=== PATIENT | female | born 1935 | race Caucasian/White ===

== ENCOUNTER 2017-08-28 19:48 | Inpatient (IN) | payer MEDICARE, OTHER ==
[~2017-08-28] VITALS: Ht 167.6 cm; Wt 72.6 kg
[~2017-08-28 19:48] MED LIST: ACET-2154 PO; ATOR20TA PO; CYAN10006 IM; DILT120C2 PO; DOCU-141 PO; LOSA50TA21 PO; MAGN400O6 PO; MEMA5TAB PO; MULT1TAB73 PO; PANT40TA2 PO; SOTA80TA26 PO; WARF2TAB6 PO
[2017-08-28] MEDS ORDERED: LOSA100T15 PO (20:18)
[2017-08-28] MEDS ORDERED: SOTA80TA PO (20:18)
[2017-08-28] MEDS ORDERED: ATOR40TA PO (20:18)
[2017-08-28 20:24] LABS: BASOPHILS % (AUTO) 0.5 % (0.0-2.0); EOSINOPHILS # (AUTO) 0.1 K/uL (0.0-0.7); EOSINOPHILS % (AUTO) 2.5 % (0.0-7.0); HEMATOCRIT 41.6 % (31.2-41.9); HEMOGLOBIN 13.9 g/dL (10.9-14.3); LYMPHOCYTES # (AUTO) 2.2 K/uL (20.0-40.0); LYMPHOCYTES % (AUTO) 38.6 % (20.5-51.5); MEAN CORPUSCULAR HEMOGLOBIN 37.1 uug (24.7-32.8); MEAN CORPUSCULAR HGB CONC 34 g/dL (32.3-35.6); MEAN CORPUSCULAR VOLUME 110.9 fL (75.5-95.3); MONOCYTES # (AUTO) 0.6 K/uL (2.0-10.0); NEUTROPHILS # (AUTO) 2.7 K/uL (1.8-8.9); NEUTROPHILS % (AUTO) 47.4 % (38.5-71.5); PLATELET COUNT (AUTO) 145 K/uL (179-408); RED BLOOD CELL COUNT(AUTO) 3.76 MIL/uL (3.63-4.92); WHITE BLOOD COUNT (AUTO) 5.7 K/uL (3.8-11.8)
[2017-08-28 20:30] LABS: ALANINE AMINOTRANSFERASE 22 U/L (14-59); ALKALINE PHOSPHATASE 121 U/L (50-136); ASPARTATE AMINOTRANSFERASE 24 U/L (15-37); BILIRUBIN,DIRECT 0.2 mg/dL (0.0-0.2); BILIRUBIN,TOTAL 0.8 mg/dL (0.2-1.0); CARBON DIOXIDE 24 mmol/L (21-32); CHLORIDE 106 mmol/L (98-107); CREATININE 1.4 mg/dL (0.6-1.3); GLUCOSE 91 mg/dL (74-106); POTASSIUM 3.5 mmol/L (3.5-5.1); TOTAL PROTEIN, SERUM 7.2 g/dL (6.4-8.2); UREA NITROGEN, BLOOD 26 mg/dL (7-18)
[2017-08-28 20:33] LABS: ACETAMINOPHEN < 2.0 ug/mL (10-30)
[2017-08-28 20:48] LABS: ETHANOL 168 MG/DL (0-0)
[2017-08-28 21:10] LABS: THYROID STIMULATING HORMONE 2.298 mIU/mL (0.358-3.740)
[2017-08-28] MEDS ORDERED: WARF2TAB57 PO (21:34)
[2017-08-28 21:42] LABS: *BILIRUBIN,URIN NEGATIVE (NEGATIVE); *BLOOD, URINE Trace-intact (NEGATIVE); *CLARITY,URINE SLIGHTLY CLOUDY (CLEAR); *COLOR,URINE YELLOW (YELLOW); *KETONES,URINE NEGATIVE (NEGATIVE); *PROTEIN,URINE NEGATIVE (NEGATIVE); *UROBILINOGEN,URINE 0.2 E.U./dl (NORMAL); LEUKOCYTE ESTERASE ,URINE 2+ (NEGATIVE); NITRITE, URINE NEGATIVE (NEGATIVE); UGLUCOSE NEGATIVE (NEGATIVE)
[2017-08-28 21:57] LABS: BACTERIA,URINE MODERATE /HPF (NONE SEEN); SQUAMOUS EPITHELIAL CELL,UR MODERATE /HPF (NONE SEEN); WBC,URINE 20-50 /HPF (0-3)
[2017-08-28 22:02] LABS: *AMPHETAMINE, URINE NEGATIVE (NEGATIVE); *BARBITURATE, URINE NEGATIVE (NEGATIVE); *CANNABINOID, URINE NEGATIVE (NEGATIVE); *COCCAINE, URINE NEGATIVE (NEGATIVE); *OPIATE, URINE NEGATIVE (NEGATIVE); *PHENCYCLIDINE SCREEN,URINE NEGATIVE (NEGATIVE)
--- NOTE | 2017-08-28 22:20 | NUR ---
PT RECEIVED FROM ED, VIA [place]. PT ORIENTED TO ROOM. A/OX3. ABLE TO MAKE NEEDS KNOWN. V/S STABLE. IN NO ACUTE DISTRESS. NO C/O PAIN AT THIS TIME. PACING WITH UNDERLYING AFLUTTER ON THE TELE MONITOR. IV INTACT AND PATENT. ON RA TOLERATING WELL. AFEBRILE. SAFETY MEASURES IMPLEMENTED. BED ALARM SET. CALL LIGHT WITHIN REACH.
[2017-08-28] MEDS ORDERED: ONDANSETRON 4 MG/2 ML VIAL IV PRN (22:30)
[2017-08-28] MEDS ORDERED: HYDROCODONE/APAP 5-325MG TABLET PO PRN (22:30)
[2017-08-28] MEDS ORDERED: Z GUARD REMEDY PASTE 57 GM TUBE TOP PRN (22:30)
[2017-08-28] MEDS ORDERED: LORAZEPAM 2 MG/1 ML VIAL IV PRN (22:30)
[2017-08-28] MEDS ORDERED: ZOLPIDEM 5 MG TABLET PO PRN (22:30)
[2017-08-28] MEDS ORDERED: MAGNESIUM HYDROXIDE 30 ML LIQUID UDC PO PRN ×2 (22:30→22:45)
[2017-08-28 22:35] VITALS: BP 157/77
[2017-08-28] MEDS ORDERED: hydrALAZINE HCL 25 MG TABLET PO PRN (22:45)
[2017-08-28] MEDS ORDERED: WARFARIN SODIUM 2 MG TABLET PO SCH (22:45)
[2017-08-28] MEDS ORDERED: WARFARIN SODIUM 5 MG TABLET PO SCH (22:45)
--- NOTE | 2017-08-28 22:46 | NUR ---
Pt. admitted to TELE, under care of Dr. Mendoza Belongs List completed
[2017-08-28] MEDS ORDERED: SULFAMETH/TRIMETH 800/160 MG TABLET ONE (23:50)
[2017-08-28] MEDS: SULFAMETH/TRIMETH 800/160 MG TABLET PO SCH (23:50)
--- NOTE | 2017-08-28 23:54 | NUR ---
PT WARFARIN HELD. PT STATES HAVING TAKEN IT TONIGHT.
[2017-08-28] MEDS: IV NS 1000 ML 1,000 ML IV PRN (23:55)
[2017-08-29] VITALS: BP 141/89
[2017-08-29] MEDS ORDERED: SOTALOL HCL 80 MG TABLET ONE (00:03)
[2017-08-29 04:00] VITALS: BP 144/82
[2017-08-29] MEDS ORDERED: DILTIAZEM HCL CD 120 MG CAP.SR.24H PO SCH (06:00)
[2017-08-29] MEDS: PANTOPRAZOLE SODIUM 40 MG TABLET.DR PO SCH (06:22)
--- NOTE | 2017-08-29 06:25 | NUR ---
END OF SHIFT NOTES. PT SLEPT INTERMITTENTLY THROUGHOUT SHIFT. IN STABLE CONDITION. IVF INFUSING. ON RA, TOLERATING WELL. AFEBRILE. ALL NEEDS ATTENDED. SAFETY MAINTAINED. CALL LIGHT WITHIN REACH.
[2017-08-29 07:05] LABS: BASOPHILS % (AUTO) 0.2 % (0.0-2.0); EOSINOPHILS # (AUTO) 0.1 K/uL (0.0-0.7); EOSINOPHILS % (AUTO) 2.4 % (0.0-7.0); HEMATOCRIT 39.9 % (31.2-41.9); HEMOGLOBIN 13.5 g/dL (10.9-14.3); LYMPHOCYTES # (AUTO) 1.6 K/uL (20.0-40.0); LYMPHOCYTES % (AUTO) 28.8 % (20.5-51.5); MEAN CORPUSCULAR HEMOGLOBIN 37.5 uug (24.7-32.8); MEAN CORPUSCULAR HGB CONC 34 g/dL (32.3-35.6); MEAN CORPUSCULAR VOLUME 110.7 fL (75.5-95.3); MONOCYTES # (AUTO) 0.5 K/uL (2.0-10.0); MONOCYTES % (AUTO) 8.5 % (0.0-11.0); NEUTROPHILS # (AUTO) 3.3 K/uL (1.8-8.9); NEUTROPHILS % (AUTO) 60.1 % (38.5-71.5); PLATELET COUNT (AUTO) 145 K/uL (179-408); RED BLOOD CELL COUNT(AUTO) 3.61 MIL/uL (3.63-4.92); WHITE BLOOD COUNT (AUTO) 5.5 K/uL (3.8-11.8)
[2017-08-29 07:11] LABS: ALANINE AMINOTRANSFERASE 17 U/L (14-59); ALKALINE PHOSPHATASE 115 U/L (50-136); ASPARTATE AMINOTRANSFERASE 26 U/L (15-37); BILIRUBIN,DIRECT 0.2 mg/dL (0.0-0.2); BILIRUBIN,TOTAL 0.7 mg/dL (0.2-1.0); CARBON DIOXIDE 20 mmol/L (21-32); CHLORIDE 110 mmol/L (98-107); CHOLESTEROL 184 mg/dL (<200); CREATININE 1.1 mg/dL (0.6-1.3); GLUCOSE 60 mg/dL (74-106); HDL CHOLESTEROL 46 mg/dL (40-60); MAGNESIUM 1.5 mg/dL (1.8-2.4); PHOSPHOROUS 3.8 mg/dL (2.5-4.9); TOTAL PROTEIN, SERUM 6.5 g/dL (6.4-8.2); TRIGLYCERIDES 291 MG/DL (30-150); UREA NITROGEN, BLOOD 21 mg/dL (7-18)
[2017-08-29 07:13] LABS: THYROID STIMULATING HORMONE 1.744 mIU/mL (0.358-3.740)
[2017-08-29 07:48] LABS: IRON, SERUM 52 ug/dL (50-175)
--- NOTE | 2017-08-29 08:00 | NUR ---
awake alert and oriented, denies of pain, no dizziness, explained plan of care- verbalized understanding, instructed to call for assistance when getting up, call light within reach, tele occ'l v paced with aflutter as underlying rhythm
[2017-08-29] MEDS: SULFAMETH/TRIMETH 800/160 MG TABLET PO SCH ×2 (08:49→22:11)
[2017-08-29] MEDS: LOSARTAN POTASSIUM 50 MG TABLET PO SCH (08:49)
[2017-08-29] MEDS: SOTALOL HCL 80 MG TABLET PO SCH ×2 (08:50→22:11)
[2017-08-29] MEDS: THIAMINE HCL 100 MG TABLET PO SCH (08:50)
[2017-08-29] MEDS: FOLIC ACID 1 MG TABLET PO SCH (08:50)
[2017-08-29] MEDS: MEMANTINE HCL 5 MG TABLET PO SCH (08:51)
[2017-08-29] MEDS ORDERED: CYANOCOBALAMIN 1000 MCG/ML VIAL IM SCH (09:00)
[2017-08-29 11:00] VITALS: BP 101/52
--- NOTE | 2017-08-29 11:00 | NUR ---
2d Echo done in the room
[2017-08-29] MEDS: IV NS 1000 ML 1,000 ML IV PRN (11:37)
[2017-08-29] MEDS: MAGNESIUM SULFATE/D5W 100 ML IV SCH ×2 (11:37→12:48)
[2017-08-29 15:30] VITALS: BP 97/56
[2017-08-29] MEDS: WARFARIN SODIUM 2 MG TABLET PO SCH (17:22)
--- NOTE | 2017-08-29 18:27 | NUR ---
no distress noted, no syncopal episode this shift, no dizziness, all needs attended and met, safety measures maintained, call light within reach. Tele A-flutter
[2017-08-29 19:00] VITALS: BP 124/64
--- NOTE | 2017-08-29 19:35 | NUR ---
PT RECEIVED IN BED, AWAKE. A/OX3. ABLE TO MAKE NEEDS KNOWN. V/S STABLE. IN NO ACUTE DISTRESS. NO C/O PAIN AT THIS TIME. ON RA, TOLERATING WELL. IVF INFUSING. V-PACING WITH AFLUTTER ON THE TELE MONITOR. SAFETY MEASURES IMPLEMENTED. BED ALARM SET. CALL LIGHT WITHIN REACH.
[2017-08-29] MEDS: DOCUSATE SODIUM 100 MG CAPSULE PO SCH (22:12)
[2017-08-29] MEDS: ATORVASTATIN 40 MG TABLET PO SCH (22:12)
[2017-08-30] VITALS: BP 145/92
[2017-08-30] MEDS: IV NS 1000 ML 1,000 ML IV PRN (00:35)
[2017-08-30 04:00] VITALS: BP 143/62
--- NOTE | 2017-08-30 05:45 | NUR ---
END OF SHIFT NOTES. PT SLEPT WELL THROUGHOUT SHIFT. IN STABLE CONDITION. IVF INFUSING. ON RA, TOLERATING WELL. ALL NEEDS ATTENDED. SAFETY MAINTAINED. CALL LIGHT WITHIN REACH.
[2017-08-30] MEDS: PANTOPRAZOLE SODIUM 40 MG TABLET.DR PO SCH (06:16)
[2017-08-30 07:16] LABS: CARBON DIOXIDE 22 mmol/L (21-32); CHLORIDE 109 mmol/L (98-107); CREATININE 1.1 mg/dL (0.6-1.3); GLUCOSE 92 mg/dL (74-106); MAGNESIUM 1.7 mg/dL (1.8-2.4); POTASSIUM 3.6 mmol/L (3.5-5.1); UREA NITROGEN, BLOOD 19 mg/dL (7-18)
--- NOTE | 2017-08-30 08:00 | NUR ---
resting in bed, denies of pain, no dizziness, safety measures maintained, call light within reach
[2017-08-30] MEDS: FOLIC ACID 1 MG TABLET PO SCH (08:30)
[2017-08-30] MEDS: THIAMINE HCL 100 MG TABLET PO SCH (08:30)
[2017-08-30] MEDS: SULFAMETH/TRIMETH 800/160 MG TABLET PO SCH ×2 (08:30→20:01)
[2017-08-30] MEDS: MEMANTINE HCL 5 MG TABLET PO SCH (08:31)
[2017-08-30] MEDS: LOSARTAN POTASSIUM 50 MG TABLET PO SCH (08:31)
[2017-08-30] MEDS: DILTIAZEM HCL CD 120 MG CAP.SR.24H PO SCH (08:32)
[2017-08-30] MEDS: SOTALOL HCL 80 MG TABLET PO SCH ×2 (08:32→20:08)
[2017-08-30] MEDS: MAGNESIUM SULFATE/D5W 100 ML IV SCH ×2 (10:23→11:40)
[2017-08-30 11:00] VITALS: BP 125/76
--- NOTE | 2017-08-30 14:00 | NUR ---
seen by Dr Mendoza
[2017-08-30 15:10] VITALS: BP 146/84
--- NOTE | 2017-08-30 16:35 | NUR ---
seen by Case management
[2017-08-30] MEDS ORDERED: WARFARIN SODIUM 2 MG TABLET PO SCH (17:00)
--- NOTE | 2017-08-30 17:45 | NUR ---
ambulated in the hallway with assitance- tolerated well, no distress noted, all needs attended and met, call light within each
[2017-08-30 19:00] VITALS: BP 123/65
--- NOTE | 2017-08-30 19:35 | NUR ---
PT RECEIVED IN BED, AWAKE. A/OX3. ABLE TO MAKE NEEDS KNOWN. V/S STABLE. IN NO ACUTE DISTRESS. PT C/O GENERALIZED PAIN, 12/29. REQUEST TYLENOL. WILL ADMINISTER ORDERED. IV INTACT AND PATENT. ON RA, TOLERATING WELL. SAFETY MEASURES IMPLEMENTED. BED ALARM SET. CALL LIGHT WITHIN REACH.
[2017-08-30] MEDS: ACETAMINOPHEN 325 MG TABLET PO PRN (20:01)
[2017-08-30] MEDS: ATORVASTATIN 40 MG TABLET PO SCH (20:02)
[2017-08-30] MEDS: DOCUSATE SODIUM 100 MG CAPSULE PO SCH (20:02)
[2017-08-31 04:00] VITALS: BP 146/90
--- NOTE | 2017-08-31 05:45 | NUR ---
END OF SHIFT NOTES. PT SLEPT INTERMITTENTLY THROUGHOUT SHIFT. IN STABLE CONDITION. PT WAS CONFUSED DURING THE SHIFT. STATES SHE DID NOT KNOW WHY SHE WAS HERE. NEEDS FREQUENT REORIENTATION. IV INTACT AND PATENT. ON RA, TOLERATING WELL. AFEBRILE. ALL NEEDS ATTENDED. SAFETY MAINTAINED. CALL LIGHT WITHIN REACH.
[2017-08-31] MEDS: PANTOPRAZOLE SODIUM 40 MG TABLET.DR PO SCH (06:07)
[2017-08-31] MEDS: ACETAMINOPHEN 325 MG TABLET PO PRN (06:18)
[2017-08-31 08:08] LABS: BASOPHILS % (AUTO) 0.4 % (0.0-2.0); EOSINOPHILS # (AUTO) 0.1 K/uL (0.0-0.7); HEMATOCRIT 38.7 % (31.2-41.9); HEMOGLOBIN 13.1 g/dL (10.9-14.3); LYMPHOCYTES # (AUTO) 1.6 K/uL (20.0-40.0); LYMPHOCYTES % (AUTO) 35.6 % (20.5-51.5); MEAN CORPUSCULAR HEMOGLOBIN 37.2 uug (24.7-32.8); MEAN CORPUSCULAR HGB CONC 34 g/dL (32.3-35.6); MEAN CORPUSCULAR VOLUME 110.2 fL (75.5-95.3); MONOCYTES # (AUTO) 0.5 K/uL (2.0-10.0); MONOCYTES % (AUTO) 12.1 % (0.0-11.0); NEUTROPHILS # (AUTO) 2.2 K/uL (1.8-8.9); NEUTROPHILS % (AUTO) 48.9 % (38.5-71.5); PLATELET COUNT (AUTO) 125 K/uL (179-408); RED BLOOD CELL COUNT(AUTO) 3.51 MIL/uL (3.63-4.92); WHITE BLOOD COUNT (AUTO) 4.5 K/uL (3.8-11.8)
[2017-08-31 08:33] LABS: CARBON DIOXIDE 21 mmol/L (21-32); CHLORIDE 108 mmol/L (98-107); CREATININE 1.3 mg/dL (0.6-1.3); GLUCOSE 91 mg/dL (74-106); POTASSIUM 3.9 mmol/L (3.5-5.1); UREA NITROGEN, BLOOD 18 mg/dL (7-18)
[2017-08-31] MEDS: DILTIAZEM HCL CD 120 MG CAP.SR.24H PO SCH (10:07)
[2017-08-31] MEDS: LOSARTAN POTASSIUM 50 MG TABLET PO SCH (10:07)
[2017-08-31] MEDS: FOLIC ACID 1 MG TABLET PO SCH (10:07)
[2017-08-31] MEDS: MEMANTINE HCL 5 MG TABLET PO SCH (10:08)
[2017-08-31] MEDS: THIAMINE HCL 100 MG TABLET PO SCH (10:08)
[2017-08-31] MEDS: SOTALOL HCL 80 MG TABLET PO SCH (10:09)
[2017-08-31] MEDS: SULFAMETH/TRIMETH 800/160 MG TABLET PO SCH (10:10)
[2017-08-31 11:30] VITALS: BP 144/84
[2017-08-31 15:22] VITALS: BP 118/61
[2017-08-31] MEDS: WARFARIN SODIUM 2 MG TABLET PO SCH (17:37)
== END 2017-08-31 19:00 | disposition home or self-care (01) | DRG 896 ==
LOC: ER 19:49 → TELE 22:08 → MED 08-30 05:24
PROVIDERS: ADMIT Internal Medicine; ATTEND Internal Medicine
DX: F10.229 Alcohol dependence with intoxication, unspecified (principal); N17.0 Acute kidney failure with tubular necrosis; D68.59 Other primary thrombophilia; G31.2 Degeneration of nervous system due to alcohol; I48.0 Paroxysmal atrial fibrillation; E83.42 Hypomagnesemia; R55 Syncope and collapse; I48.92 Unspecified atrial flutter; N39.0 Urinary tract infection, site not specified; T51.0X1A Toxic effect of ethanol, accidental (unintentional), initial encounter; Y90.6 Blood alcohol level of 120-199 mg/100 ml; D63.8 Anemia in other chronic diseases classified elsewhere; E78.5 Hyperlipidemia, unspecified; F03.90 Unspecified dementia, unspecified severity, without behavioral disturbance, psychotic disturbance, mood disturbance, and anxiety; I12.9 Hypertensive chronic kidney disease with stage 1 through stage 4 chronic kidney disease, or unspecified chronic kidney disease; I25.10 Atherosclerotic heart disease of native coronary artery without angina pectoris; K21.9 Gastro-esophageal reflux disease without esophagitis; Z79.01 Long term (current) use of anticoagulants; Z83.3 Family history of diabetes mellitus; Z87.891 Personal history of nicotine dependence; Z91.19 Patient's noncompliance with other medical treatment and regimen; Z95.0 Presence of cardiac pacemaker; Z88.0 Allergy status to penicillin; N18.9 Chronic kidney disease, unspecified; D75.89 Other specified diseases of blood and blood-forming organs; E78.1 Pure hyperglyceridemia
CPT/HCPCS: 36415; 80307; 82746; 83550; 83735; 84100; 84443; 85025; 85610; 87086; 93005; 93307; A4663; G0480; G0480-TC; J3475; J7030

== ENCOUNTER 2018-03-13 17:33 | Inpatient (IN) | payer MEDICARE, OTHER ==
[~2018-03-13] VITALS: Ht 167.6 cm; Wt 65.8 kg
[~2018-03-13 17:33] MED LIST changes: +ATOR40TA PO; -CYAN10006 IM; +DILT-32 PO; -DILT120C2 PO; +LOSA100T15 PO; +SOTA80TA PO; +WARF-68 PO; +WARF2TAB57 PO; -WARF2TAB6 PO
[2018-03-13 18:29] LABS: BASOPHILS % (AUTO) 0.6 % (0.0-2.0); EOSINOPHILS # (AUTO) 0.1 K/uL (0.0-0.7); EOSINOPHILS % (AUTO) 1.8 % (0.0-7.0); HEMATOCRIT 39.3 % (31.2-41.9); HEMOGLOBIN 13.1 g/dL (10.9-14.3); LYMPHOCYTES # (AUTO) 1.9 K/uL (20.0-40.0); LYMPHOCYTES % (AUTO) 32.4 % (20.5-51.5); MEAN CORPUSCULAR HEMOGLOBIN 32.7 uug (24.7-32.8); MEAN CORPUSCULAR HGB CONC 33 g/dL (32.3-35.6); MEAN CORPUSCULAR VOLUME 98.3 fL (75.5-95.3); MONOCYTES # (AUTO) 0.7 K/uL (2.0-10.0); MONOCYTES % (AUTO) 11.3 % (0.0-11.0); NEUTROPHILS # (AUTO) 3.2 K/uL (1.8-8.9); NEUTROPHILS % (AUTO) 53.9 % (38.5-71.5); PLATELET COUNT (AUTO) 144 K/uL (179-408); RED BLOOD CELL COUNT(AUTO) 3.99 MIL/uL (3.63-4.92)
--- NOTE | 2018-03-13 18:29 | NUR ---
PT IS IN ROOM #1A. DR SIMPSON EVALUATED THE PT.
[2018-03-13 18:33] LABS: CARBON DIOXIDE 25 mmol/L (21-32); CHLORIDE 108 mmol/L (98-107); GLUCOSE 98 mg/dL (74-106); POTASSIUM 3.9 mmol/L (3.5-5.1); UREA NITROGEN, BLOOD 14 mg/dL (7-18)
[2018-03-13 18:41] LABS: ETHANOL < 3 MG/DL (0-0)
[2018-03-13 18:43] LABS: *BILIRUBIN,URIN NEGATIVE (NEGATIVE); *BLOOD, URINE NEGATIVE (NEGATIVE); *CLARITY,URINE SLIGHTLY CLOUDY (CLEAR); *COLOR,URINE YELLOW (YELLOW); *KETONES,URINE NEGATIVE (NEGATIVE); *PROTEIN,URINE NEGATIVE (NEGATIVE); *UROBILINOGEN,URINE 0.2 E.U./dl (NORMAL); LEUKOCYTE ESTERASE ,URINE 1+ (NEGATIVE); NITRITE, URINE NEGATIVE (NEGATIVE); UGLUCOSE NEGATIVE (NEGATIVE)
[2018-03-13 18:44] LABS: BACTERIA,URINE MODERATE /HPF (NONE SEEN); RBC,URINE 0-3 /HPF (0-3); SQUAMOUS EPITHELIAL CELL,UR MANY /HPF (NONE SEEN)
[2018-03-13 18:45] LABS: ALANINE AMINOTRANSFERASE 19 U/L (14-59); ALKALINE PHOSPHATASE 115 U/L (50-136); ASPARTATE AMINOTRANSFERASE 16 U/L (15-37); BILIRUBIN,DIRECT 0.3 mg/dL (0.0-0.2); BILIRUBIN,TOTAL 1.3 mg/dL (0.2-1.0); TOTAL PROTEIN, SERUM 7.1 g/dL (6.4-8.2)
--- NOTE | 2018-03-13 19:11 | NUR ---
REPORT TAKEN FROM DAY SHIFT RN. ASSUMING PT CARE AT THIS TIME.
--- NOTE | 2018-03-13 19:24 | NUR ---
DR SIMPSON SPEAKING TO DR BARKER.
[2018-03-13 20:00] VITALS: BP 167/83
--- NOTE | 2018-03-13 20:07 | NUR ---
Pt. admitted to TELE, under care of Dr. BARKER Belongs List completed
--- NOTE | 2018-03-13 20:07 | NUR ---
REPORT GIVEN TO MARGARETTE BAIRES.
[2018-03-13 20:30] VITALS: BP 138/68
--- NOTE | 2018-03-13 20:30 | NUR ---
RECEIVED PATIENT FROM ER. PATIENT IS ADMITTED FOR SUBACUTE CVA. NO FACIAL DROOPING OR ARM WEAKNESS ON ASSESSMENT. PATIENT IS AAXO2 WITH SOME CONFUSION DENIES PAIN OR ANY DISTRESS,ON ASSESSMENT. SAFETY MEASURES IN PLACE, CALL LIGHT LEFT WITHIN PATIENT'S REACH
[2018-03-13] MEDS ORDERED: MAGNESIUM HYDROXIDE 30 ML LIQUID UDC PO PRN (22:30)
[2018-03-13] MEDS ORDERED: ACETAMINOPHEN 325 MG TABLET PO PRN (22:30)
[2018-03-13] MEDS ORDERED: MORPHINE SULFATE 2 MG/1 ML DISP.SYRIN IV PRN (22:45)
[2018-03-13] MEDS ORDERED: ONDANSETRON 4 MG/2 ML VIAL IV PRN (22:45)
[2018-03-13] MEDS ORDERED: ATORVASTATIN 40 MG TABLET PO ONE (23:00)
[2018-03-14] VITALS: BP 136/61
[2018-03-14 04:00] VITALS: BP 137/69
[2018-03-14] MEDS: DILTIAZEM HCL CD 120 MG CAP.SR.24H PO SCH (06:07)
[2018-03-14] MEDS: PANTOPRAZOLE SODIUM 40 MG TABLET.DR PO SCH (06:07)
[2018-03-14 06:29] LABS: BASOPHILS % (AUTO) 0.3 % (0.0-2.0); EOSINOPHILS # (AUTO) 0.1 K/uL (0.0-0.7); EOSINOPHILS % (AUTO) 2.4 % (0.0-7.0); HEMATOCRIT 39.6 % (31.2-41.9); HEMOGLOBIN 13.3 g/dL (10.9-14.3); LYMPHOCYTES % (AUTO) 34.1 % (20.5-51.5); MEAN CORPUSCULAR HGB CONC 34 g/dL (32.3-35.6); MEAN CORPUSCULAR VOLUME 98.1 fL (75.5-95.3); MONOCYTES # (AUTO) 0.7 K/uL (2.0-10.0); NEUTROPHILS % (AUTO) 51.2 % (38.5-71.5); PLATELET COUNT (AUTO) 136 K/uL (179-408); RED BLOOD CELL COUNT(AUTO) 4.04 MIL/uL (3.63-4.92); WHITE BLOOD COUNT (AUTO) 5.9 K/uL (3.8-11.8)
--- NOTE | 2018-03-14 06:50 | NUR ---
PATIENT SLEPT WELL THROUGH THE SHIFT, CONTINUES TO BE CONFUSED WITH DIFFICULTY EXPRESSING WORDS. DENIES PAIN NO ACUTE DISTRESS AT THIS TIME. SAFETY MEASURES MAINTAINED AT ALL TIMES.
[2018-03-14 07:23] LABS: ALANINE AMINOTRANSFERASE 18 U/L (14-59); ALKALINE PHOSPHATASE 102 U/L (50-136); ASPARTATE AMINOTRANSFERASE 21 U/L (15-37); CARBON DIOXIDE 25 mmol/L (21-32); CHLORIDE 107 mmol/L (98-107); CHOLESTEROL 192 mg/dL (<200); GLUCOSE 89 mg/dL (74-106); HDL CHOLESTEROL 48 mg/dL (40-60); MAGNESIUM 1.7 mg/dL (1.8-2.4); PHOSPHOROUS 3.7 mg/dL (2.5-4.9); POTASSIUM 3.7 mmol/L (3.5-5.1); TOTAL PROTEIN, SERUM 6.7 g/dL (6.4-8.2); TRIGLYCERIDES 171 MG/DL (30-150); UREA NITROGEN, BLOOD 13 mg/dL (7-18)
--- NOTE | 2018-03-14 08:00 | NUR ---
Pt alert and oriented. x2 reoriented to time and place. Pt very forgetfull and pt having hard time expressing herself when talking. Pt Able to swallow fine. No drift noted. Fall precaution implemented. Call light is within reach.
--- NOTE | 2018-03-14 08:00 | NUR ---
Received patient resting in bed. no acute distress at this time. IV access intact and patent. Patient ambulatory. Patient respirations even and unlabored. 02 sat 98% on room air. Full body assessment done. Skin remain intact. Patient able to verbalize needs however noted with mild aphasia.
[2018-03-14] MEDS: LOSARTAN POTASSIUM 50 MG TABLET PO SCH (08:35)
[2018-03-14] MEDS: MEMANTINE HCL 5 MG TABLET PO SCH (08:35)
[2018-03-14] MEDS: CLOPIDOGREL 75 MG TABLET PO SCH (08:37)
[2018-03-14] MEDS ORDERED: PANTOPRAZOLE SODIUM 40 MG VIAL IV SCH (09:00)
[2018-03-14] MEDS ORDERED: SOTALOL HCL 80 MG TABLET PO SCH (09:00)
[2018-03-14 11:32] VITALS: BP 128/62
[2018-03-14] MEDS ORDERED: POTASSIUM CHLORIDE 20 MEQ TAB.PRT.SR PO ONE (11:45)
[2018-03-14] MEDS ORDERED: MAGNESIUM OXIDE 400 MG TABLET PO ONE (11:45)
--- NOTE | 2018-03-14 12:00 | NUR ---
Patient consumed 100% of meal. Blood pressure medications held for hypotension. Patient reminded of fall safety precautions such as wearing non skid socks and requesting for assistance when ambulating. Patient remains comfortably. No abnormal bleeding and bruising noted related to anti coagulant usage.
[2018-03-14] MEDS: CYANOCOBALAMIN 1000 MCG/ML VIAL IM SCH (12:09)
--- NOTE | 2018-03-14 14:00 | NUR ---
Noted patient appears to be on Xarelto and Plavix together. MD made aware. No new orders noted. Will monitor for abnormal bleeding or bruising and endorse to oncoming Nurse.
[2018-03-14 15:32] VITALS: BP 111/57
--- NOTE | 2018-03-14 17:59 | NUR ---
Ok received from Dr. Kent to give Xarelto despite plavix therapy.
--- NOTE | 2018-03-14 18:00 | NUR ---
Pt is in no acute distress. No fall noted. Call light is within reach. clarified xarelto and plavix ok to be given both today. Will f/u tomorrow.
[2018-03-14] MEDS: RIVAROXABAN 15 MG TABLET PO SCH (18:21)
[2018-03-14 19:00] VITALS: BP 117/65
[2018-03-14] MEDS: ATORVASTATIN 40 MG TABLET PO SCH (21:06)
[2018-03-14] MEDS: DOCUSATE SODIUM 100 MG CAPSULE PO SCH (21:06)
[2018-03-14] MEDS: LORAZEPAM 2 MG/1 ML VIAL IV PRN (21:06)
--- NOTE | 2018-03-14 21:30 | NUR ---
AT 2049 PATIENT APPEARS ANXIOUS AND CONFUSED. REORIENTATION PROVIDED. MD BARKER INFORMED ON PATIENT MENTAL STATUS. AT 2099 MD BARKER ORDERED TO START ON 1 MG ATIVAN Q8H PRN FOR ANXIETY. ORDER RECEIVED AND CARRIED OUT. REASSESSED PATIENTS STATUS. PATIENT ASLEEP ON BED, RESTING COMFORTABLY. ON SINUS RHYTHM WITH HR OF 85. NO SIGNS OF RESPIRATORY DISTRESS.
[2018-03-14] MEDS ORDERED: LEVOFLOXACIN 500 MG/D5W 100 ML ONE (22:53)
[2018-03-14] MEDS: LEVOFLOXACIN 500 MG/D5W 500 MG in PREMIXED 1 EACH IV SCH (23:17)
[2018-03-15] VITALS: BP 138/52
--- NOTE | 2018-03-15 | NUR ---
Patient remains asleep, Afib on the monitor.
[2018-03-15 04:00] VITALS: BP 145/79
[2018-03-15] MEDS: MORPHINE SULFATE 4 MG/1 ML DISP.SYRIN IV PRN (04:18)
--- NOTE | 2018-03-15 04:22 | NUR ---
Awake but confused, c/o left LE pain. Heart rate running 120s-140s Atrial fib. Morphine 1mg IVP adm & monitored.
[2018-03-15] MEDS: DILTIAZEM HCL CD 120 MG CAP.SR.24H PO SCH (06:00)
[2018-03-15] MEDS: PANTOPRAZOLE SODIUM 40 MG TABLET.DR PO SCH (06:18)
--- NOTE | 2018-03-15 06:46 | NUR ---
PATIENT REMAIN ASLEEP, RESTING COMFORTABLY. ON TELE AFIB RHYTHM WITH HR OF 108. NO SOB, DENIES CHEST PAIN. SAFETY MEASURES MAINTAINED AT ALL TIMES.
[2018-03-15] MEDS: MEMANTINE HCL 5 MG TABLET PO SCH (08:59)
[2018-03-15] MEDS ORDERED: CYANOCOBALAMIN 1000 MCG/ML VIAL IM SCH (09:00)
--- NOTE | 2018-03-15 09:00 | NUR ---
Pt more confused today. Dr Kent aware and awaiting for CT head to be done. Fall precaution implemented. 1:1 sitter at bedside. Call light is within reach.
[2018-03-15] MEDS: CYANOCOBALAMIN 1000 MCG/ML VIAL IM SCH (09:02)
[2018-03-15] MEDS: LOSARTAN POTASSIUM 50 MG TABLET PO SCH (09:02)
[2018-03-15] MEDS: CLOPIDOGREL 75 MG TABLET PO SCH (09:02)
[2018-03-15 12:00] VITALS: BP 110/54
--- NOTE | 2018-03-15 15:00 | NUR ---
Dr nguyen saw pt. CT head negative. Pt is in no acute distress. ST eval passed. Call light is within reach.
[2018-03-15 15:45] VITALS: BP 121/53
[2018-03-15] MEDS: ASPIRIN EC 81 MG TABLET.DR PO SCH (16:19)
[2018-03-15] MEDS: RIVAROXABAN 15 MG TABLET PO SCH (17:46)
[2018-03-15 20:00] VITALS: BP 102/57
--- NOTE | 2018-03-15 20:00 | NUR ---
Awake & alert pleasantly confused, no SOB denies chest pain. Ambulatory w/ minimal assist. Vital signs WNL. Tele Afib 90s. Seen & examined by neurologist Dr. Alejo, no further orders received. 1:1 sitter in room.
[2018-03-15] MEDS: ATORVASTATIN 40 MG TABLET PO SCH (21:13)
[2018-03-15] MEDS: DOCUSATE SODIUM 100 MG CAPSULE PO SCH (21:13)
[2018-03-15] MEDS: LEVOFLOXACIN 500 MG/D5W 500 MG in PREMIXED 1 EACH IV SCH (22:36)
[2018-03-16] VITALS: BP 116/56
[2018-03-16 04:00] VITALS: BP 110/73
[2018-03-16 06:28] LABS: CARBON DIOXIDE 25 mmol/L (21-32); CHLORIDE 109 mmol/L (98-107); CREATININE 1.1 mg/dL (0.6-1.3); GLUCOSE 90 mg/dL (74-106); MAGNESIUM 1.6 mg/dL (1.8-2.4); PHOSPHOROUS 3.7 mg/dL (2.5-4.9); UREA NITROGEN, BLOOD 12 mg/dL (7-18)
[2018-03-16] MEDS: DILTIAZEM HCL CD 120 MG CAP.SR.24H PO SCH (06:29)
[2018-03-16] MEDS: PANTOPRAZOLE SODIUM 40 MG TABLET.DR PO SCH (06:29)
--- NOTE | 2018-03-16 06:30 | NUR ---
No significant vital signs stable. Afib on the monitor.
[2018-03-16 06:52] LABS: BASOPHILS % (AUTO) 0.2 % (0.0-2.0); EOSINOPHILS # (AUTO) 0.1 K/uL (0.0-0.7); EOSINOPHILS % (AUTO) 2.5 % (0.0-7.0); HEMATOCRIT 40.1 % (31.2-41.9); HEMOGLOBIN 13.4 g/dL (10.9-14.3); LYMPHOCYTES # (AUTO) 1.6 K/uL (20.0-40.0); LYMPHOCYTES % (AUTO) 34.1 % (20.5-51.5); MEAN CORPUSCULAR HEMOGLOBIN 32.9 uug (24.7-32.8); MEAN CORPUSCULAR HGB CONC 34 g/dL (32.3-35.6); MEAN CORPUSCULAR VOLUME 98.1 fL (75.5-95.3); MONOCYTES # (AUTO) 0.7 K/uL (2.0-10.0); MONOCYTES % (AUTO) 15.4 % (0.0-11.0); NEUTROPHILS # (AUTO) 2.3 K/uL (1.8-8.9); NEUTROPHILS % (AUTO) 47.8 % (38.5-71.5); PLATELET COUNT (AUTO) 127 K/uL (179-408); RED BLOOD CELL COUNT(AUTO) 4.08 MIL/uL (3.63-4.92); WHITE BLOOD COUNT (AUTO) 4.7 K/uL (3.8-11.8)
--- NOTE | 2018-03-16 07:10 | NUR ---
Received pt awake in bed with no immediate s/s of SOB, pain, distress or discomfort. Sitter 1:1 for safety
[2018-03-16] MEDS: MEMANTINE HCL 5 MG TABLET PO SCH (08:55)
[2018-03-16] MEDS: ASPIRIN EC 81 MG TABLET.DR PO SCH (08:55)
[2018-03-16] MEDS: LOSARTAN POTASSIUM 50 MG TABLET PO SCH (08:56)
[2018-03-16] MEDS: CYANOCOBALAMIN 1000 MCG/ML VIAL IM SCH (08:56)
[2018-03-16 10:26] LABS: EOSINOPHILS % (MANUAL) 1 % (0-8); LYMPHOCYTES % (MANUAL) 35 % (20-40); MONOCYTES % (MANUAL) 14 % (2-10); NEUTROPHILS % (MANUAL) 50 % (42-75)
--- NOTE | 2018-03-16 12:07 | NUR ---
Patient is 82 y/o female who present with left-sided lower extremity weakness and some difficulty finding words. Currently on cardiac/soft diet. Diet texture has been modified as per RESEARCH AND DEVELOPMENT MANAGER recommendations and per RESEARCH AND DEVELOPMENT MANAGER notes from 03/15/18, Soft diet appeared to be appropriate at this time. As per case management meeting, patient will have another swallow eval today, recent swallow eval was from yesterday. Will f/u with a new swallow eval Patient is tolerating current diet, eating 75-100% of meals. Anthropometry:current weight is 145lb,BMI 23.4, Bowel sound present skin intact No nutrition diagnosis at this time, full nutrition assessment scheduled as per policy. Monitor:PO intake,weight, new labs Addendum: 03/16/18 at [address] Amended: Links added.
[2018-03-16] MEDS: MAGNESIUM SULFATE/D5W 100 ML IV SCH ×2 (16:14→17:10)
[2018-03-16] MEDS: RIVAROXABAN 15 MG TABLET PO SCH (17:10)
--- NOTE | 2018-03-16 19:20 | NUR ---
Pt has been compliant with medication and nursing care. Pt had a sitter 1:1 throughout the shift for safety.
[2018-03-16] MEDS: MORPHINE SULFATE 4 MG/1 ML DISP.SYRIN IV PRN (20:04)
[2018-03-16] MEDS: LORAZEPAM 2 MG/1 ML VIAL IV PRN (20:11)
[2018-03-16] MEDS: ATORVASTATIN 40 MG TABLET PO SCH (20:13)
[2018-03-16] MEDS: DOCUSATE SODIUM 100 MG CAPSULE PO SCH (20:13)
--- NOTE | 2018-03-16 22:00 | NUR ---
Patient transferred to room 226 for safety issue. Confused, agitated yelling with the caregivers. Patient managed to pull her IV out. 1:1 sitter provided.
--- NOTE | 2018-03-16 22:30 | NUR ---
Ativan 1mg IVP adm., good effect noted. Inserted new IV line on left hand [id number]. Levaquin IVPB adm. Will continue to monitor.
[2018-03-16] MEDS: LEVOFLOXACIN 500 MG/D5W 500 MG in PREMIXED 1 EACH IV SCH (22:45)
--- NOTE | 2018-03-16 23:30 | NUR ---
Patient sleeping comfortably. Fall precaution observed.
--- NOTE | 2018-03-17 03:00 | NUR ---
Awake disoriented to place. Assisted to the bathroom patient voided. Agitated at this time verbalizing she want to go home, yelling at staff. Escorted back to bed, Ativan 1mg IVP administered.
[2018-03-17] MEDS: LORAZEPAM 2 MG/1 ML VIAL IV PRN ×2 (03:05→13:11)
[2018-03-17] MEDS: MORPHINE SULFATE 4 MG/1 ML DISP.SYRIN IV PRN (03:30)
--- NOTE | 2018-03-17 03:34 | NUR ---
Still awake anxious c/o left shoulder discomfort. Repositioned in bed. Morphine 1 mg IVP given. Will continue to monitor.
[2018-03-17 04:00] VITALS: BP 112/57
--- NOTE | 2018-03-17 04:10 | NUR ---
Patient quiet at this time. Fall precaution observed.
[2018-03-17] MEDS: DILTIAZEM HCL CD 120 MG CAP.SR.24H PO SCH (06:00)
[2018-03-17] MEDS: PANTOPRAZOLE SODIUM 40 MG TABLET.DR PO SCH (06:08)
[2018-03-17 06:49] LABS: CARBON DIOXIDE 27 mmol/L (21-32); CHLORIDE 108 mmol/L (98-107); CREATININE 1.1 mg/dL (0.6-1.3); GLUCOSE 97 mg/dL (74-106); MAGNESIUM 2.1 mg/dL (1.8-2.4); POTASSIUM 3.8 mmol/L (3.5-5.1)
[2018-03-17 07:01] LABS: UREA NITROGEN, BLOOD 12 mg/dL (7-18)
--- NOTE | 2018-03-17 07:20 | NUR ---
patient alert and pleasantly confused. no signs of respiratory distress. safety measures maintained at all times.
[2018-03-17 08:00] VITALS: BP 130/68
[2018-03-17] MEDS: ASPIRIN EC 81 MG TABLET.DR PO SCH (08:52)
[2018-03-17] MEDS: LOSARTAN POTASSIUM 50 MG TABLET PO SCH (08:53)
[2018-03-17] MEDS: CYANOCOBALAMIN 1000 MCG/ML VIAL IM SCH (08:53)
[2018-03-17] MEDS: MEMANTINE HCL 5 MG TABLET PO SCH (08:53)
[2018-03-17 12:00] VITALS: BP 147/87
[2018-03-17] MEDS ORDERED: ASPI-618 PO (13:52)
[2018-03-17] MEDS ORDERED: RIVA15TA PO (13:52)
[2018-03-17] MEDS ORDERED: LEVO500T90 PO (13:52)
[2018-03-17] MEDS ORDERED: LORA0.5T PO (14:46)
[2018-03-17 16:20] VITALS: BP 152/82
--- NOTE | 2018-03-17 17:55 | NUR ---
Pt discharged to ARU. Full SBAR report given to MARGARETTE Duvall. Pt is A&O x1-2. Continues to be pleasantly confused with x1 episode of agitation during shift, managed by Ativan IV PRN. Continues to have no further symptoms of poss TIA. No adverse side effects from Levaquin for her UTI. Discharged pt with discharge summary and all her belongings. Heplock removed. 1:1 sitter at side. Accompanied pt to ARU.
[2018-03-17] MEDS ORDERED: DOCU100C36 PO (18:41)
[2018-03-17] MEDS ORDERED: LOSA50TA3 PO (18:41)
[2018-03-17] MEDS ORDERED: MEMA10TA PO (18:41)
[2018-03-17] MEDS ORDERED: ASPI-605 PO (18:41)
[2018-03-17] MEDS ORDERED: RIVA10TA PO (18:41)
[2018-03-17] MEDS ORDERED: MAGN400O6 PO (18:41)
[2018-03-17] MEDS ORDERED: ATOR40TA PO (18:41)
[2018-03-17] MEDS ORDERED: PANT40TA4 PO (18:41)
[2018-03-17] MEDS ORDERED: DILT120T2 PO (18:41)
[2018-03-17] MEDS ORDERED: ACET-2154 PO (18:41)
[2018-03-17] MEDS ORDERED: LEVOFLOXACIN 250MG /D5W 250 MG in PREMIXED 1 EACH IV SCH (22:30)
== END 2018-03-17 17:45 | DRG 64 ==
LOC: ER 17:34 → TELE 19:41 → MED 03-16 19:53
PROVIDERS: ADMIT Internal Medicine; ATTEND Internal Medicine
DX: I63.30 Cerebral infarction due to thrombosis of unspecified cerebral artery (principal); G93.41 Metabolic encephalopathy; G81.94 Hemiplegia, unspecified affecting left nondominant side; I48.92 Unspecified atrial flutter; F05 Delirium due to known physiological condition; D68.59 Other primary thrombophilia; E44.1 Mild protein-calorie malnutrition; I50.42 Chronic combined systolic (congestive) and diastolic (congestive) heart failure; N39.0 Urinary tract infection, site not specified; I48.2 Chronic atrial fibrillation; R47.01 Aphasia; R40.2414 Glasgow coma scale score 13-15, 24 hours or more after hospital admission; R29.704 NIHSS score 4; Z95.0 Presence of cardiac pacemaker; Z96.643 Presence of artificial hip joint, bilateral; Z88.0 Allergy status to penicillin; Z83.3 Family history of diabetes mellitus; F01.50 Vascular dementia, unspecified severity, without behavioral disturbance, psychotic disturbance, mood disturbance, and anxiety; G30.9 Alzheimer's disease, unspecified; F02.80 Dementia in other diseases classified elsewhere, unspecified severity, without behavioral disturbance, psychotic disturbance, mood disturbance, and anxiety; E78.5 Hyperlipidemia, unspecified; E83.42 Hypomagnesemia; Z87.440 Personal history of urinary (tract) infections; M50.31 Other cervical disc degeneration, high cervical region; Z86.73 Personal history of transient ischemic attack (TIA), and cerebral infarction without residual deficits; Z79.899 Other long term (current) drug therapy; Z79.01 Long term (current) use of anticoagulants; Z68.23 Body mass index [BMI] 23.0-23.9, adult; I11.0 Hypertensive heart disease with heart failure; D75.89 Other specified diseases of blood and blood-forming organs; I70.0 Atherosclerosis of aorta
CPT/HCPCS: 36415; 70030-TC; 70450; 71045; 72125; 83605; 83735; 84100; 84443; 85025; 85730; 87040; 87086; 92507; 92523; 92610; 93005; 93307; 93880; 97110; 97112; 97116; 97165; 97530; A4663; G0480; J1956; J2060; J2270; J2405; J3420; J3475; J7030; J7050; J7060

== ENCOUNTER 2018-03-17 11:25 | Inpatient (IN) | payer MEDICARE, OTHER ==
[~2018-03-17] VITALS: Ht 167.6 cm; Wt 65.8 kg
[~2018-03-17 11:25] MED LIST changes: -WARF-68 PO; -WARF2TAB57 PO
[2018-03-17] MEDS ORDERED: RIVA15TA PO (13:52)
[2018-03-17] MEDS ORDERED: ASPI-618 PO (13:52)
[2018-03-17] MEDS ORDERED: LEVO500T90 PO (13:52)
[2018-03-17] MEDS ORDERED: LORA0.5T PO (14:46)
[2018-03-17] MEDS ORDERED: DILT120T2 PO (18:41)
[2018-03-17] MEDS ORDERED: ACET-2154 PO (18:41)
[2018-03-17] MEDS ORDERED: RIVA10TA PO (18:41)
[2018-03-17] MEDS ORDERED: LOSA50TA3 PO (18:41)
[2018-03-17] MEDS ORDERED: ATOR40TA PO (18:41)
[2018-03-17] MEDS ORDERED: MEMA10TA PO (18:41)
[2018-03-17] MEDS ORDERED: DOCU100C36 PO (18:41)
[2018-03-17] MEDS ORDERED: ASPI-605 PO (18:41)
[2018-03-17] MEDS ORDERED: MAGN400O6 PO (18:41)
[2018-03-17] MEDS ORDERED: PANT40TA4 PO (18:41)
[2018-03-17] MEDS ORDERED: Z GUARD REMEDY PASTE 57 GM TUBE TOP PRN (19:00)
[2018-03-17] MEDS ORDERED: MAGNESIUM HYDROXIDE 30 ML LIQUID UDC PO PRN (19:15)
--- NOTE | 2018-03-17 20:00 | NUR ---
The patient received sitting on bed awake, alert and oriented x2. No acute distress or SOB was noted. A sitter is at the bedside. Call light and personal belonging within reach. Bed alarm and bed brakes on for safety precaution. Continue to monitor.
[2018-03-17] MEDS: DOCUSATE SODIUM 100 MG CAPSULE PO SCH (20:38)
[2018-03-17] MEDS: ATORVASTATIN 40 MG TABLET PO SCH (20:38)
[2018-03-17] MEDS: RIVAROXABAN 15 MG TABLET PO SCH (20:40)
[2018-03-17 20:45] VITALS: BP 102/72
--- NOTE | 2018-03-17 22:00 | NUR ---
Patient started showing signs of anxiety: walked out of her room, argued with the sitter saying she needs to go so she can take care of her sick son and started to become agitated. Patient appeared confused, composing sentences that makes no since at all. Called slot floor person MD to update pt's status and to obtain orders for Ativan to calm her done. On-Call Jimbo Jeronimo gave an ATIVAN 1mg PO Q8Hrs PRN for anxiety/agitation. Offered to the patient but refused. Tried to convince the pt. to go back to the room but pt. insisted to just walk around the unit. Called security public safety officer for assistance, pt still continued to argue with them and other staff including the sitter. Contacted On-Call Jimbo Jeronimo informed him that pt. refused to take the PO. Obtained new order of Ativan 1mg IM one dose only.
[2018-03-17] MEDS ORDERED: LORAZEPAM 2 MG/1 ML VIAL IM ONE (23:45)
[2018-03-17] MEDS: LORAZEPAM 1 MG TABLET PO PRN (23:47)
--- NOTE | 2018-03-17 23:50 | NUR ---
We were able to convinced pt. to go back to the room, stated that she's tired and needs to sit down since she's been standing and walking around the unit for the last hours but still appeared anxious. Offered again the Ativan PO and she finally took it with pudding. IM Ativan not given anymore, since pt. able to take the PO. Sitter still at bedside. Vital signs are WNL, breathing even and nonlabored. Will continue to monitor the patient.
[2018-03-18 05:33] VITALS: BP 143/79
--- NOTE | 2018-03-18 06:04 | NUR ---
End of the shift note, Patient was confused and agitated, After taking Lorazepam 2mg Tab, she comfortably slept. A sitter was at the bedside. Meds given as ordered. personal belongings and call light within reach. Bed alarm and break on for safety precaution. Will accordingly endorse the day shift nurse to continue the care.
--- NOTE | 2018-03-18 07:12 | NUR ---
Patient refused to take Diltiazem 120 mg 1 cap and Protonix 40 mg 1 tab at morning 0700. Risks and benefits explained. Will endorse day shift nurse accordingly.
[2018-03-18 08:00] VITALS: BP 127/65
--- NOTE | 2018-03-18 08:00 | NUR ---
Received patient, awake alert x1-2. With 1:1 sitter at bed side. With periods of confusion and may want to get out of bed on her own, Denies any pain. Not in any form of distress.
[2018-03-18] MEDS: LOSARTAN POTASSIUM 50 MG TABLET PO SCH (08:28)
[2018-03-18] MEDS: PANTOPRAZOLE SODIUM 40 MG TABLET.DR PO SCH (08:28)
[2018-03-18] MEDS: MEMANTINE HCL 5 MG TABLET PO SCH (08:28)
[2018-03-18] MEDS: ASPIRIN EC 81 MG TABLET.DR PO SCH (08:29)
[2018-03-18] MEDS: DILTIAZEM HCL CD 120 MG CAP.SR.24H PO SCH (08:29)
--- NOTE | 2018-03-18 11:10 | NUR ---
Up with physical therapy, tolerating therapy well.
[2018-03-18 16:00] VITALS: BP 120/73
[2018-03-18] MEDS: LORAZEPAM 1 MG TABLET PO PRN (17:07)
[2018-03-18] MEDS: RIVAROXABAN 15 MG TABLET PO SCH (17:08)
[2018-03-18 19:30] VITALS: BP 110/50
[2018-03-18] MEDS: ATORVASTATIN 40 MG TABLET PO SCH (20:44)
[2018-03-18] MEDS: DOCUSATE SODIUM 100 MG CAPSULE PO SCH (20:44)
[2018-03-18] MEDS ORDERED: CYANOCOBALAMIN 1000 MCG/ML VIAL IM SCH (22:00)
--- NOTE | 2018-03-19 05:42 | NUR ---
aaox 1-2 confused and disoriented. needs attended. patient has 1:1 sitter . compliant with meds.no acute distress noted. VSS. no signs of agitation or restlessness noted. slept well throughout the night. calm and pleasant. fall precautions maintained. siderails up for safety. will monitor patient.
[2018-03-19] MEDS: PANTOPRAZOLE SODIUM 40 MG TABLET.DR PO SCH (06:20)
[2018-03-19] MEDS: DILTIAZEM HCL CD 120 MG CAP.SR.24H PO SCH (06:25)
[2018-03-19 07:01] VITALS: BP 107/62
[2018-03-19 07:11] LABS: BASOPHILS % (AUTO) 0.7 % (0.0-2.0); EOSINOPHILS # (AUTO) 0.1 K/uL (0.0-0.7); EOSINOPHILS % (AUTO) 2.1 % (0.0-7.0); HEMATOCRIT 40.3 % (31.2-41.9); HEMOGLOBIN 13.3 g/dL (10.9-14.3); LYMPHOCYTES % (AUTO) 40.9 % (20.5-51.5); MEAN CORPUSCULAR HEMOGLOBIN 32.7 uug (24.7-32.8); MEAN CORPUSCULAR HGB CONC 33 g/dL (32.3-35.6); MEAN CORPUSCULAR VOLUME 98.8 fL (75.5-95.3); MONOCYTES # (AUTO) 0.6 K/uL (2.0-10.0); MONOCYTES % (AUTO) 11.6 % (0.0-11.0); NEUTROPHILS # (AUTO) 2.2 K/uL (1.8-8.9); NEUTROPHILS % (AUTO) 44.7 % (38.5-71.5); PLATELET COUNT (AUTO) 150 K/uL (179-408); RED BLOOD CELL COUNT(AUTO) 4.08 MIL/uL (3.63-4.92); WHITE BLOOD COUNT (AUTO) 4.8 K/uL (3.8-11.8)
[2018-03-19 07:29] LABS: ALANINE AMINOTRANSFERASE 16 U/L (14-59); ALKALINE PHOSPHATASE 99 U/L (50-136); ASPARTATE AMINOTRANSFERASE 13 U/L (15-37); BILIRUBIN,TOTAL 0.7 mg/dL (0.2-1.0); CARBON DIOXIDE 27 mmol/L (21-32); CHLORIDE 106 mmol/L (98-107); CREATININE 1.2 mg/dL (0.6-1.3); GLUCOSE 92 mg/dL (74-106); MAGNESIUM 1.7 mg/dL (1.8-2.4); PHOSPHOROUS 3.7 mg/dL (2.5-4.9); POTASSIUM 3.7 mmol/L (3.5-5.1); TOTAL PROTEIN, SERUM 6.4 g/dL (6.4-8.2); UREA NITROGEN, BLOOD 16 mg/dL (7-18)
[2018-03-19 07:54] VITALS: BP 117/68
[2018-03-19] MEDS: LOSARTAN POTASSIUM 50 MG TABLET PO SCH (08:08)
[2018-03-19] MEDS: ASPIRIN EC 81 MG TABLET.DR PO SCH (08:08)
[2018-03-19] MEDS: MEMANTINE HCL 5 MG TABLET PO SCH (08:08)
[2018-03-19] MEDS: LORAZEPAM 1 MG TABLET PO PRN ×2 (13:05→17:11)
--- NOTE | 2018-03-19 13:47 | NUR ---
INTERDISCIPLINARY TEAM CONFERENCE
[2018-03-19] MEDS ORDERED: MAGNESIUM OXIDE 400 MG TABLET PO ONE (14:30)
[2018-03-19] MEDS: RIVAROXABAN 15 MG TABLET PO SCH (17:13)
--- NOTE | 2018-03-19 17:49 | NUR ---
pt stable throughout the day. pt seems to be confused and was given ativan. ordered MMA lab to determine b12 deficiency. no changes baseline functionality. pt was ordered to have psych consult. will endorse to warehouse shift supervisor nurse.
[2018-03-19 19:30] VITALS: BP 116/44
[2018-03-19] MEDS: DOCUSATE SODIUM 100 MG CAPSULE PO SCH (21:22)
[2018-03-19] MEDS: ATORVASTATIN 40 MG TABLET PO SCH (21:22)
[2018-03-20 05:23] VITALS: BP 128/77
[2018-03-20] MEDS: LORAZEPAM 1 MG TABLET PO PRN ×2 (06:12→17:08)
[2018-03-20] MEDS: PANTOPRAZOLE SODIUM 40 MG TABLET.DR PO SCH (06:13)
[2018-03-20] MEDS: DILTIAZEM HCL CD 120 MG CAP.SR.24H PO SCH (06:14)
[2018-03-20 08:00] VITALS: BP 107/52
[2018-03-20] MEDS: MEMANTINE HCL 5 MG TABLET PO SCH (09:38)
[2018-03-20] MEDS: LOSARTAN POTASSIUM 50 MG TABLET PO SCH (09:38)
[2018-03-20] MEDS: ASPIRIN EC 81 MG TABLET.DR PO SCH (09:39)
[2018-03-20 15:58] VITALS: BP 119/45
[2018-03-20] MEDS: RIVAROXABAN 15 MG TABLET PO SCH (17:08)
[2018-03-20 19:53] VITALS: BP 123/64
[2018-03-20] MEDS: DOCUSATE SODIUM 100 MG CAPSULE PO SCH (21:15)
[2018-03-20] MEDS: ATORVASTATIN 40 MG TABLET PO SCH (21:15)
[2018-03-20] MEDS: risperiDONE 0.25 MG TABLET PO SCH (21:46)
[2018-03-21 05:02] VITALS: BP 131/69
--- NOTE | 2018-03-21 06:00 | NUR ---
pt alert,confused,forgetful, pt seen by psyche doctor and started on Risperidal, pt is mood appears controlled and is behaving appropriately and follows instruction, pt been insisting to go home and get her car and things. but able to calm her down and remains in the room only with a sitter at watched.ambulates to bathroom and voiding few times walks steady but with SBA with sitter for safety.been waking up in the middle of the night, easily get irritated and upset when instructed to stay in her room.got hungry this morning at 0300am requesting coffee but instead given pudding and lela crackers but noted coughing with the crackers.kept safe and comfortable overnight, all needs attended,vss.
[2018-03-21] MEDS: PANTOPRAZOLE SODIUM 40 MG TABLET.DR PO SCH (06:21)
[2018-03-21] MEDS: DILTIAZEM HCL CD 120 MG CAP.SR.24H PO SCH (06:21)
[2018-03-21 08:19] VITALS: BP 162/93
[2018-03-21] MEDS: MEMANTINE HCL 5 MG TABLET PO SCH (08:38)
[2018-03-21] MEDS: risperiDONE 0.25 MG TABLET PO SCH ×2 (08:39→20:31)
[2018-03-21] MEDS: ASPIRIN EC 81 MG TABLET.DR PO SCH (08:39)
[2018-03-21] MEDS: LOSARTAN POTASSIUM 50 MG TABLET PO SCH (08:42)
--- NOTE | 2018-03-21 08:59 | NUR ---
pt seen on rounding. pt continues to be confused. pt given risperdal as ordered by psychiatry consult. bp elevated. pt given reg meds. will continue to monitor.
--- NOTE | 2018-03-21 11:59 | NUR ---
pt will have appointment with dr [place] on at 400pm. will notify md for clearance.
[2018-03-21 15:50] VITALS: BP 126/55
[2018-03-21] MEDS: RIVAROXABAN 15 MG TABLET PO SCH (17:22)
--- NOTE | 2018-03-21 18:26 | NUR ---
pt stable throughout the day. continues to be confused and walk around the unit. family member states that pt will have appointment in thrusday with primary physician [place]. will endorse to health center associate nurse.
--- NOTE | 2018-03-21 20:00 | NUR ---
RECEIVED PATIENT SITTING IN CHAIR WITH 1:1 SITTER AT SIDE. PATIENT IS ALERT TO SELF ONLY. VERY CONFUSED AND DISORIENTED, BUT PLEASANT WHEN APPROACHED. DENIES PAIN. NO FACIAL GRIMACE NOTED. PATIENT IS VERY ELATED. NO RESP. DISTRESS NOTED. VS WNL. CALL LIGHT IN REACH. ALL NEEDS ATTENDED. WILL CONTINUE TO MONITOR.
[2018-03-21] MEDS: DOCUSATE SODIUM 100 MG CAPSULE PO SCH (20:30)
[2018-03-21] MEDS: ATORVASTATIN 40 MG TABLET PO SCH (20:30)
[2018-03-21] MEDS: LORAZEPAM 1 MG TABLET PO PRN (20:54)
[2018-03-21 21:51] VITALS: BP 89/53
[2018-03-22 05:30] VITALS: BP 123/74
--- NOTE | 2018-03-22 05:31 | NUR ---
PATIENT AWAKE IN BED. SITTER AT BEDSIDE. PATIENT SLEPT WELL THROUGHOUT THE NIGHT. VS WNL. DENIES PAIN. BED ALARM ON. CALL LIGHT IN REACH. ALL NEEDS ATTENDED. WILL CONTINUE TO MONITOR AND ASSESS.
[2018-03-22] MEDS: DILTIAZEM HCL CD 120 MG CAP.SR.24H PO SCH (05:40)
[2018-03-22] MEDS: PANTOPRAZOLE SODIUM 40 MG TABLET.DR PO SCH (06:02)
[2018-03-22 07:58] VITALS: BP 129/85
[2018-03-22] MEDS: ASPIRIN EC 81 MG TABLET.DR PO SCH (09:00)
[2018-03-22] MEDS: MEMANTINE HCL 5 MG TABLET PO SCH (09:00)
[2018-03-22] MEDS: risperiDONE 0.25 MG TABLET PO SCH ×2 (09:00→21:09)
[2018-03-22] MEDS: LOSARTAN POTASSIUM 50 MG TABLET PO SCH (09:01)
--- NOTE | 2018-03-22 10:36 | NUR ---
Patient noted resting in bed with lights off, 1 to 1 sitter noted at bed side, call light in reach, bed locked and in lowest position, no complaints of pain, no signs of distress noted, all needs met at this time
[2018-03-22] MEDS: LORAZEPAM 1 MG TABLET PO PRN (12:56)
--- NOTE | 2018-03-22 16:00 | NUR ---
I agree Addendum: 03/23/18 at 0819 by FRANCIS PIEDRA PT Amended: Links added.
--- NOTE | 2018-03-22 16:00 | NUR ---
I agree Addendum: 03/23/18 at 0822 by FRANCIS PIEDRA PT Amended: Links added.
--- NOTE | 2018-03-22 16:00 | NUR ---
I agree Addendum: 03/23/18 at 0821 by FRANCIS PIEDRA PT Amended: Links added.
--- NOTE | 2018-03-22 16:27 | NUR ---
PRN ATIVAN GIVEN FOR AGITATION, PATIENT NOTED PACING UNIT AND REFUSING TO TO BE REDIRECTED TO ROOM
[2018-03-22] MEDS: RIVAROXABAN 15 MG TABLET PO SCH (18:00)
[2018-03-22] MEDS: ATORVASTATIN 40 MG TABLET PO SCH (21:10)
[2018-03-22] MEDS: DOCUSATE SODIUM 100 MG CAPSULE PO SCH (21:10)
[2018-03-22 22:16] VITALS: BP 139/50
[2018-03-23 06:00] VITALS: BP 121/60
[2018-03-23] MEDS: PANTOPRAZOLE SODIUM 40 MG TABLET.DR PO SCH (06:10)
[2018-03-23] MEDS: DILTIAZEM HCL CD 120 MG CAP.SR.24H PO SCH (06:11)
[2018-03-23 08:00] VITALS: BP 117/61
[2018-03-23] MEDS: ASPIRIN EC 81 MG TABLET.DR PO SCH (09:11)
[2018-03-23] MEDS: MEMANTINE HCL 5 MG TABLET PO SCH (09:11)
[2018-03-23] MEDS: LOSARTAN POTASSIUM 50 MG TABLET PO SCH (09:12)
[2018-03-23] MEDS: risperiDONE 0.25 MG TABLET PO SCH ×2 (09:12→21:17)
[2018-03-23 15:45] VITALS: BP 119/57
[2018-03-23] MEDS: RIVAROXABAN 15 MG TABLET PO SCH (17:38)
--- NOTE | 2018-03-23 18:10 | NUR ---
EKG result relayed to Dr.. Kent with no new orders.
--- NOTE | 2018-03-23 18:26 | NUR ---
End of shift report: patient remained stable throughout the shift with no acute changes noted. No SOB or distress. assessed for pain, denies any pain or discomforts. No changes in LOC or mentation noted. All due medications were given- tolerated well. All needs were attended and anticipated. safety precautions observed. on 1:1 sitter, hourly rounding done, call light and telephone within reach at all times. Will endorse accordingly to incoming shift for continuity of care.
[2018-03-23 19:00] VITALS: BP 135/75
[2018-03-23] MEDS: LORAZEPAM 1 MG TABLET PO PRN (19:00)
--- NOTE | 2018-03-23 19:25 | NUR ---
Awake during initial rounds, very talkative. Sitter at bedside. Denies any pain/discomforts at this time. Infrequent non productive cough noted. No respiratory distress noted. Continue care as planned.
[2018-03-23] MEDS: DOCUSATE SODIUM 100 MG CAPSULE PO SCH (21:17)
[2018-03-23] MEDS: ATORVASTATIN 40 MG TABLET PO SCH (21:17)
[2018-03-24 04:00] VITALS: BP 124/65
[2018-03-24] MEDS: PANTOPRAZOLE SODIUM 40 MG TABLET.DR PO SCH (06:37)
[2018-03-24] MEDS: DILTIAZEM HCL CD 120 MG CAP.SR.24H PO SCH (06:38)
[2018-03-24 07:30] LABS: BASOPHILS % (AUTO) 0.2 % (0.0-2.0); EOSINOPHILS # (AUTO) 0.1 K/uL (0.0-0.7); EOSINOPHILS % (AUTO) 2.6 % (0.0-7.0); HEMATOCRIT 36.7 % (31.2-41.9); HEMOGLOBIN 12.4 g/dL (10.9-14.3); LYMPHOCYTES # (AUTO) 1.5 K/uL (20.0-40.0); LYMPHOCYTES % (AUTO) 29.1 % (20.5-51.5); MEAN CORPUSCULAR HEMOGLOBIN 32.9 uug (24.7-32.8); MEAN CORPUSCULAR HGB CONC 34 g/dL (32.3-35.6); MEAN CORPUSCULAR VOLUME 97.8 fL (75.5-95.3); MONOCYTES # (AUTO) 0.7 K/uL (2.0-10.0); MONOCYTES % (AUTO) 13.5 % (0.0-11.0); NEUTROPHILS # (AUTO) 2.8 K/uL (1.8-8.9); NEUTROPHILS % (AUTO) 54.6 % (38.5-71.5); PLATELET COUNT (AUTO) 157 K/uL (179-408); RED BLOOD CELL COUNT(AUTO) 3.76 MIL/uL (3.63-4.92); WHITE BLOOD COUNT (AUTO) 5.2 K/uL (3.8-11.8)
--- NOTE | 2018-03-24 07:34 | NUR ---
Patient noted laying in bed with eyes open, 1 to 1 sitter noted at bed side, no complaints of pain, no signs of distress noted, call light in reach, be locked and in lowest position
[2018-03-24 07:47] LABS: CARBON DIOXIDE 24 mmol/L (21-32); CHLORIDE 111 mmol/L (98-107); GLUCOSE 84 mg/dL (74-106); MAGNESIUM 1.5 mg/dL (1.8-2.4); PHOSPHOROUS 3.8 mg/dL (2.5-4.9); POTASSIUM 3.6 mmol/L (3.5-5.1); UREA NITROGEN, BLOOD 12 mg/dL (7-18)
[2018-03-24 08:00] VITALS: BP 136/75
[2018-03-24] MEDS: MEMANTINE HCL 5 MG TABLET PO SCH (08:51)
[2018-03-24] MEDS: LORAZEPAM 1 MG TABLET PO PRN ×2 (08:52→21:28)
[2018-03-24] MEDS: CYANOCOBALAMIN 1000 MCG/ML VIAL IM SCH (08:52)
[2018-03-24] MEDS: risperiDONE 0.25 MG TABLET PO SCH ×2 (08:52→21:28)
[2018-03-24] MEDS: ASPIRIN EC 81 MG TABLET.DR PO SCH (08:52)
[2018-03-24] MEDS: LOSARTAN POTASSIUM 50 MG TABLET PO SCH (08:57)
[2018-03-24] MEDS ORDERED: MAGNESIUM OXIDE 400 MG TABLET PO ONE (15:30)
[2018-03-24 16:17] VITALS: BP 120/64
[2018-03-24] MEDS: RIVAROXABAN 15 MG TABLET PO SCH (17:38)
[2018-03-24 19:31] VITALS: BP 121/63
[2018-03-24] MEDS: DOCUSATE SODIUM 100 MG CAPSULE PO SCH (21:00)
[2018-03-24] MEDS: ATORVASTATIN 40 MG TABLET PO SCH (21:28)
[2018-03-25] MEDS: DILTIAZEM HCL CD 120 MG CAP.SR.24H PO SCH (06:04)
[2018-03-25] MEDS: PANTOPRAZOLE SODIUM 40 MG TABLET.DR PO SCH (06:04)
[2018-03-25 08:00] VITALS: BP 106/62
--- NOTE | 2018-03-25 08:00 | NUR ---
RECEIVED PATIENT SITTING IN CHAIR WITH 1:1 SITTER AT SIDE. PATIENT IS ALERT TO SELF ONLY. VERY CONFUSED AND DISORIENTED, BUT PLEASANT WHEN APPROACHED, COMPLIANT AT TIMES, DENIES ANY PAIN. NO FACIAL GRIMACE NOTED. PATIENT IS VERY ELATED. NO RESP. DISTRESS NOTED. VS WNL. CALL LIGHT IN REACH. ALL NEEDS ATTENDED. WILL CONTINUE TO MONITOR.
[2018-03-25] MEDS: LOSARTAN POTASSIUM 50 MG TABLET PO SCH (09:00)
[2018-03-25] MEDS: MEMANTINE HCL 5 MG TABLET PO SCH (09:00)
[2018-03-25] MEDS: CYANOCOBALAMIN 1000 MCG/ML VIAL IM SCH (09:00)
[2018-03-25] MEDS: risperiDONE 0.25 MG TABLET PO SCH ×2 (09:00→21:19)
[2018-03-25] MEDS: ASPIRIN EC 81 MG TABLET.DR PO SCH (09:00)
--- NOTE | 2018-03-25 09:44 | NUR ---
PATIENT REFUSED ALL HER MEDICATIONS, OFFERED X3 AND EXPLAIN THE BENEFITS OF MEDICATION REGIMEN, BUT STILL REFUSED, PATIENT STATED "I'M TAKING MY MEDICATION FROM MY DOCTOR AND I ALREADY TAKE MY MEDICATION FROM MY DOCTOR".
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
[2018-03-25 16:00] VITALS: BP 125/67
[2018-03-25] MEDS: RIVAROXABAN 15 MG TABLET PO SCH (17:24)
[2018-03-25 20:00] VITALS: BP 124/60
[2018-03-25] MEDS: DOCUSATE SODIUM 100 MG CAPSULE PO SCH (21:00)
[2018-03-25] MEDS: ATORVASTATIN 40 MG TABLET PO SCH (21:19)
[2018-03-25] MEDS: LORAZEPAM 1 MG TABLET PO PRN (21:19)
[2018-03-26 06:00] VITALS: BP 124/87
[2018-03-26] MEDS: PANTOPRAZOLE SODIUM 40 MG TABLET.DR PO SCH (06:12)
[2018-03-26] MEDS: DILTIAZEM HCL CD 120 MG CAP.SR.24H PO SCH (06:13)
[2018-03-26 07:30] VITALS: BP 146/85
[2018-03-26] MEDS: CYANOCOBALAMIN 1000 MCG/ML VIAL IM SCH (10:06)
[2018-03-26] MEDS: ASPIRIN EC 81 MG TABLET.DR PO SCH (10:07)
[2018-03-26] MEDS: MEMANTINE HCL 5 MG TABLET PO SCH (10:07)
[2018-03-26] MEDS: risperiDONE 0.25 MG TABLET PO SCH (10:07)
[2018-03-26 10:11] VITALS: BP 146/85
[2018-03-26] MEDS: LOSARTAN POTASSIUM 50 MG TABLET PO SCH (10:11)
--- NOTE | 2018-03-26 15:50 | NUR ---
1420: PT attempted to leave facility. Stated that she doesn't want to be in her room and prefers to be elsewhere. Tried to convince her to come back to the department but refused. powdered metal supervisor tried to convince PT to come back to the room, but seemed agitated. PT still continues to refuse to leave security area. More agitated and restless. Dr. Mccarthy was made aware. 1515: placed 51/50 hold. PT transferred to MHU. Charge nurse aware. 1530: Charge nurse gave report to MHU nurse. All information was transferred.
== END 2018-03-26 15:00 | DRG 56 ==
LOC: UNDOADMIN 18:10
PROVIDERS: ADMIT Physical Medicine & Rehabilitation Pain Medicine; ATTEND Physical Medicine & Rehabilitation Pain Medicine
DX: I69.344 Monoplegia of lower limb following cerebral infarction affecting left non-dominant side (principal); G93.41 Metabolic encephalopathy; D68.59 Other primary thrombophilia; I50.42 Chronic combined systolic (congestive) and diastolic (congestive) heart failure; I48.92 Unspecified atrial flutter; E44.1 Mild protein-calorie malnutrition; F23 Brief psychotic disorder; I69.320 Aphasia following cerebral infarction; R29.810 Facial weakness; D53.1 Other megaloblastic anemias, not elsewhere classified; F03.90 Unspecified dementia, unspecified severity, without behavioral disturbance, psychotic disturbance, mood disturbance, and anxiety; Z96.643 Presence of artificial hip joint, bilateral; M19.90 Unspecified osteoarthritis, unspecified site; E53.8 Deficiency of other specified B group vitamins; D75.89 Other specified diseases of blood and blood-forming organs; E78.5 Hyperlipidemia, unspecified; F01.50 Vascular dementia, unspecified severity, without behavioral disturbance, psychotic disturbance, mood disturbance, and anxiety; I48.2 Chronic atrial fibrillation; G30.9 Alzheimer's disease, unspecified; F10.10 Alcohol abuse, uncomplicated; Y90.9 Presence of alcohol in blood, level not specified; Z87.440 Personal history of urinary (tract) infections; E83.42 Hypomagnesemia; Z79.01 Long term (current) use of anticoagulants; Z88.0 Allergy status to penicillin; M50.30 Other cervical disc degeneration, unspecified cervical region; Z95.0 Presence of cardiac pacemaker
CPT/HCPCS: 36415; 70030-TC; 83735; 83921; 84100; 85025; 92507; 92523; 93005; 97110; 97112; 97116; 97530; 97535; A4663; J3420

== ENCOUNTER 2018-03-26 16:50 | Inpatient (IN) | payer OTHER ==
[~2018-03-26] VITALS: Ht 167.6 cm; Wt 65.8 kg
[~2018-03-26 16:50] MED LIST changes: +ASPI-618 PO; -ATOR20TA PO; -LOSA100T15 PO; -MULT1TAB73 PO; +RIVA15TA PO; -SOTA80TA PO; -SOTA80TA26 PO
[2018-03-26] MEDS ORDERED: MAGNESIUM HYDROXIDE 30 ML LIQUID UDC PO PRN ×2 (17:00→20:30)
[2018-03-26] MEDS ORDERED: TEMAZEPAM 7.5 MG CAPSULE PO PRN (17:00)
[2018-03-26] MEDS ORDERED: MAG HYDROX/AL HYDROX/SIMETH 30 ML LIQUID UDC PO PRN (17:00)
[2018-03-26] MEDS ORDERED: ACETAMINOPHEN 325 MG TABLET PO PRN ×2 (17:00→20:30)
[2018-03-26 18:46] VITALS: BP 109/45
[2018-03-26] MEDS ORDERED: RIVAROXABAN 15 MG TABLET PO ONE (20:30)
[2018-03-26 21:35] VITALS: BP 116/62
[2018-03-26] MEDS ORDERED: ATORVASTATIN 40 MG TABLET ONE (22:18)
[2018-03-26] MEDS: ATORVASTATIN 40 MG TABLET PO SCH (22:19)
[2018-03-26] MEDS: DOCUSATE SODIUM 100 MG CAPSULE PO SCH (22:20)
[2018-03-27] MEDS: DILTIAZEM HCL CD 120 MG CAP.SR.24H PO SCH (06:04)
[2018-03-27] MEDS: PANTOPRAZOLE SODIUM 40 MG TABLET.DR PO SCH (06:05)
[2018-03-27 07:30] VITALS: BP 119/78
[2018-03-27] MEDS ORDERED: MEMANTINE HCL 5 MG TABLET PO SCH (09:00)
[2018-03-27] MEDS: ASPIRIN EC 81 MG TABLET.DR PO SCH (09:40)
[2018-03-27] MEDS: LOSARTAN POTASSIUM 50 MG TABLET PO SCH (09:41)
[2018-03-27] MEDS: LORAZEPAM 1 MG TABLET PO PRN ×2 (13:00→20:44)
[2018-03-27 15:35] VITALS: BP 138/65
[2018-03-27] MEDS: RIVAROXABAN 15 MG TABLET PO SCH (17:55)
[2018-03-27 20:00] VITALS: BP 140/80
[2018-03-27] MEDS: DOCUSATE SODIUM 100 MG CAPSULE PO SCH (20:44)
[2018-03-27] MEDS: ATORVASTATIN 40 MG TABLET PO SCH (23:29)
[2018-03-28] MEDS: DILTIAZEM HCL CD 120 MG CAP.SR.24H PO SCH ×2 (07:00→07:18)
[2018-03-28] MEDS: PANTOPRAZOLE SODIUM 40 MG TABLET.DR PO SCH (07:18)
[2018-03-28 07:30] VITALS: BP 100/60
[2018-03-28] MEDS: risperiDONE 0.25 MG TABLET PO SCH ×2 (08:40→20:33)
[2018-03-28] MEDS: RIVASTIGMINE TARTRATE 1.5 MG CAPSULE PO SCH ×2 (08:40→20:33)
[2018-03-28] MEDS: ASPIRIN EC 81 MG TABLET.DR PO SCH (08:40)
[2018-03-28] MEDS: LOSARTAN POTASSIUM 50 MG TABLET PO SCH (08:41)
[2018-03-28 15:41] VITALS: BP 134/76
[2018-03-28] MEDS: RIVAROXABAN 15 MG TABLET PO SCH (18:03)
[2018-03-28] MEDS: DOCUSATE SODIUM 100 MG CAPSULE PO SCH (20:33)
[2018-03-28] MEDS: ATORVASTATIN 40 MG TABLET PO SCH (20:33)
[2018-03-28 20:55] VITALS: BP 148/81
[2018-03-29] MEDS: PANTOPRAZOLE SODIUM 40 MG TABLET.DR PO SCH (06:24)
[2018-03-29 07:30] VITALS: BP 136/67
[2018-03-29] MEDS: LOSARTAN POTASSIUM 50 MG TABLET PO SCH ×2 (08:16→09:00)
[2018-03-29] MEDS: RIVASTIGMINE TARTRATE 1.5 MG CAPSULE PO SCH ×3 (08:16→21:02)
[2018-03-29] MEDS: ASPIRIN EC 81 MG TABLET.DR PO SCH ×2 (08:16→09:00)
[2018-03-29] MEDS: risperiDONE 0.25 MG TABLET PO SCH ×3 (08:16→21:02)
[2018-03-29 13:00] VITALS: BP 141/62
[2018-03-29] MEDS: RIVAROXABAN 15 MG TABLET PO SCH (17:06)
[2018-03-29 19:30] VITALS: BP 133/67
[2018-03-29] MEDS: DOCUSATE SODIUM 100 MG CAPSULE PO SCH (21:02)
[2018-03-29] MEDS: ATORVASTATIN 40 MG TABLET PO SCH (21:02)
[2018-03-30] MEDS: PANTOPRAZOLE SODIUM 40 MG TABLET.DR PO SCH (05:55)
[2018-03-30] MEDS: DILTIAZEM HCL CD 120 MG CAP.SR.24H PO SCH (06:00)
[2018-03-30 07:30] VITALS: BP 131/77
[2018-03-30] MEDS: RIVASTIGMINE TARTRATE 1.5 MG CAPSULE PO SCH ×3 (08:10→21:56)
[2018-03-30] MEDS: risperiDONE 0.25 MG TABLET PO SCH ×3 (08:10→21:56)
[2018-03-30] MEDS: ASPIRIN EC 81 MG TABLET.DR PO SCH (08:10)
[2018-03-30] MEDS: LOSARTAN POTASSIUM 50 MG TABLET PO SCH (08:11)
[2018-03-30 15:36] VITALS: BP 109/60
[2018-03-30] MEDS: RIVAROXABAN 15 MG TABLET PO SCH (17:09)
[2018-03-30] MEDS: DOCUSATE SODIUM 100 MG CAPSULE PO SCH ×2 (20:41→21:56)
[2018-03-30] MEDS: ATORVASTATIN 40 MG TABLET PO SCH ×2 (20:42→21:56)
[2018-03-31] MEDS: DILTIAZEM HCL CD 120 MG CAP.SR.24H PO SCH (06:36)
[2018-03-31] MEDS: PANTOPRAZOLE SODIUM 40 MG TABLET.DR PO SCH (06:36)
[2018-03-31 07:30] VITALS: BP 133/78
[2018-03-31 08:13] LABS: BASOPHILS % (AUTO) 0.5 % (0.0-2.0); EOSINOPHILS # (AUTO) 0.2 K/uL (0.0-0.7); EOSINOPHILS % (AUTO) 3.8 % (0.0-7.0); HEMATOCRIT 36.7 % (31.2-41.9); HEMOGLOBIN 12.3 g/dL (10.9-14.3); LYMPHOCYTES # (AUTO) 1.4 K/uL (20.0-40.0); LYMPHOCYTES % (AUTO) 31.8 % (20.5-51.5); MEAN CORPUSCULAR HEMOGLOBIN 32.6 uug (24.7-32.8); MEAN CORPUSCULAR HGB CONC 34 g/dL (32.3-35.6); MEAN CORPUSCULAR VOLUME 97.2 fL (75.5-95.3); MONOCYTES # (AUTO) 0.5 K/uL (2.0-10.0); MONOCYTES % (AUTO) 12.3 % (0.0-11.0); NEUTROPHILS # (AUTO) 2.2 K/uL (1.8-8.9); NEUTROPHILS % (AUTO) 51.6 % (38.5-71.5); PLATELET COUNT (AUTO) 175 K/uL (179-408); RED BLOOD CELL COUNT(AUTO) 3.77 MIL/uL (3.63-4.92); WHITE BLOOD COUNT (AUTO) 4.3 K/uL (3.8-11.8)
[2018-03-31 08:25] LABS: CARBON DIOXIDE 27 mmol/L (21-32); CHLORIDE 108 mmol/L (98-107); GLUCOSE 90 mg/dL (74-106); MAGNESIUM 1.8 mg/dL (1.8-2.4); PHOSPHOROUS 3.5 mg/dL (2.5-4.9); POTASSIUM 3.3 mmol/L (3.5-5.1); UREA NITROGEN, BLOOD 11 mg/dL (7-18)
[2018-03-31] MEDS: risperiDONE 0.25 MG TABLET PO SCH ×2 (09:31→20:49)
[2018-03-31] MEDS: RIVASTIGMINE TARTRATE 1.5 MG CAPSULE PO SCH ×2 (09:32→20:49)
[2018-03-31] MEDS: LOSARTAN POTASSIUM 50 MG TABLET PO SCH (09:32)
[2018-03-31] MEDS: ASPIRIN EC 81 MG TABLET.DR PO SCH (09:32)
[2018-03-31] MEDS ORDERED: POTASSIUM CHLORIDE 20 MEQ TAB.PRT.SR PO ONE (14:15)
[2018-03-31 15:00] VITALS: BP 96/57
[2018-03-31] MEDS: RIVAROXABAN 15 MG TABLET PO SCH (18:04)
[2018-03-31 19:55] VITALS: BP 140/72
[2018-03-31] MEDS: ATORVASTATIN 40 MG TABLET PO SCH (20:49)
[2018-03-31] MEDS: DOCUSATE SODIUM 100 MG CAPSULE PO SCH (20:49)
[2018-04-01] MEDS: PANTOPRAZOLE SODIUM 40 MG TABLET.DR PO SCH (06:01)
[2018-04-01] MEDS: DILTIAZEM HCL CD 120 MG CAP.SR.24H PO SCH (06:08)
[2018-04-01 08:53] VITALS: BP 121/65
[2018-04-01] MEDS: ASPIRIN EC 81 MG TABLET.DR PO SCH (10:10)
[2018-04-01] MEDS: risperiDONE 0.25 MG TABLET PO SCH ×2 (10:10→20:19)
[2018-04-01] MEDS: LOSARTAN POTASSIUM 50 MG TABLET PO SCH (10:10)
[2018-04-01] MEDS: RIVASTIGMINE TARTRATE 1.5 MG CAPSULE PO SCH ×2 (10:11→20:19)
[2018-04-01 16:48] VITALS: BP 112/58
[2018-04-01] MEDS: RIVAROXABAN 15 MG TABLET PO SCH (17:21)
[2018-04-01] MEDS: DOCUSATE SODIUM 100 MG CAPSULE PO SCH (20:19)
[2018-04-01] MEDS: ATORVASTATIN 40 MG TABLET PO SCH (20:19)
[2018-04-01] MEDS: risperiDONE 0.5 MG TABLET PO SCH (21:06)
[2018-04-02] MEDS: DILTIAZEM HCL CD 120 MG CAP.SR.24H PO SCH (06:10)
[2018-04-02] MEDS: PANTOPRAZOLE SODIUM 40 MG TABLET.DR PO SCH (06:10)
[2018-04-02 07:30] VITALS: BP 124/59
[2018-04-02] MEDS: RIVASTIGMINE TARTRATE 1.5 MG CAPSULE PO SCH ×2 (08:27→20:24)
[2018-04-02] MEDS: risperiDONE 0.5 MG TABLET PO SCH ×2 (08:27→20:24)
[2018-04-02] MEDS: ASPIRIN EC 81 MG TABLET.DR PO SCH (08:27)
[2018-04-02] MEDS: LOSARTAN POTASSIUM 50 MG TABLET PO SCH (08:28)
[2018-04-02 15:27] VITALS: BP 126/60
[2018-04-02] MEDS: RIVAROXABAN 15 MG TABLET PO SCH (19:03)
[2018-04-02 20:12] VITALS: BP 121/50
[2018-04-02] MEDS: DOCUSATE SODIUM 100 MG CAPSULE PO SCH (20:24)
[2018-04-02] MEDS: ATORVASTATIN 40 MG TABLET PO SCH (20:24)
[2018-04-03] MEDS: PANTOPRAZOLE SODIUM 40 MG TABLET.DR PO SCH (06:09)
[2018-04-03] MEDS: RIVASTIGMINE TARTRATE 1.5 MG CAPSULE PO SCH ×2 (08:50→20:11)
[2018-04-03] MEDS: ASPIRIN EC 81 MG TABLET.DR PO SCH (08:50)
[2018-04-03] MEDS: risperiDONE 0.5 MG TABLET PO SCH ×2 (08:51→20:11)
[2018-04-03] MEDS: LOSARTAN POTASSIUM 50 MG TABLET PO SCH (08:51)
[2018-04-03] MEDS: DILTIAZEM HCL CD 120 MG CAP.SR.24H PO SCH (08:51)
[2018-04-03 09:39] VITALS: BP 115/55
[2018-04-03 16:28] VITALS: BP 132/82
[2018-04-03] MEDS: RIVAROXABAN 15 MG TABLET PO SCH (17:24)
[2018-04-03 20:00] VITALS: BP 114/51
[2018-04-03] MEDS: DOCUSATE SODIUM 100 MG CAPSULE PO SCH (20:11)
[2018-04-03] MEDS: ATORVASTATIN 40 MG TABLET PO SCH (20:12)
[2018-04-04] MEDS: PANTOPRAZOLE SODIUM 40 MG TABLET.DR PO SCH (06:46)
[2018-04-04 07:30] VITALS: BP 129/52
[2018-04-04 07:34] LABS: BASOPHILS % (AUTO) 0.4 % (0.0-2.0); EOSINOPHILS # (AUTO) 0.1 K/uL (0.0-0.7); HEMATOCRIT 35.2 % (31.2-41.9); HEMOGLOBIN 11.7 g/dL (10.9-14.3); LYMPHOCYTES # (AUTO) 1.4 K/uL (20.0-40.0); LYMPHOCYTES % (AUTO) 30.5 % (20.5-51.5); MEAN CORPUSCULAR HEMOGLOBIN 32.8 uug (24.7-32.8); MEAN CORPUSCULAR HGB CONC 33 g/dL (32.3-35.6); MEAN CORPUSCULAR VOLUME 98.8 fL (75.5-95.3); MONOCYTES # (AUTO) 0.6 K/uL (2.0-10.0); NEUTROPHILS # (AUTO) 2.5 K/uL (1.8-8.9); NEUTROPHILS % (AUTO) 53.1 % (38.5-71.5); PLATELET COUNT (AUTO) 158 K/uL (179-408); RED BLOOD CELL COUNT(AUTO) 3.56 MIL/uL (3.63-4.92); WHITE BLOOD COUNT (AUTO) 4.8 K/uL (3.8-11.8)
[2018-04-04 07:35] LABS: CARBON DIOXIDE 27 mmol/L (21-32); CHLORIDE 108 mmol/L (98-107); GLUCOSE 90 mg/dL (74-106); POTASSIUM 3.6 mmol/L (3.5-5.1); UREA NITROGEN, BLOOD 18 mg/dL (7-18)
[2018-04-04] MEDS: LOSARTAN POTASSIUM 50 MG TABLET PO SCH (09:21)
[2018-04-04] MEDS: risperiDONE 0.5 MG TABLET PO SCH ×2 (09:21→20:39)
[2018-04-04] MEDS: RIVASTIGMINE TARTRATE 1.5 MG CAPSULE PO SCH ×2 (09:21→20:39)
[2018-04-04] MEDS: ASPIRIN EC 81 MG TABLET.DR PO SCH (09:21)
[2018-04-04] MEDS: DILTIAZEM HCL CD 120 MG CAP.SR.24H PO SCH (09:22)
[2018-04-04 16:40] VITALS: BP 101/51
[2018-04-04] MEDS: RIVAROXABAN 15 MG TABLET PO SCH (17:09)
[2018-04-04 20:16] VITALS: BP 114/56
[2018-04-04] MEDS: DOCUSATE SODIUM 100 MG CAPSULE PO SCH (20:39)
[2018-04-04] MEDS: ATORVASTATIN 40 MG TABLET PO SCH (20:39)
[2018-04-05] MEDS: PANTOPRAZOLE SODIUM 40 MG TABLET.DR PO SCH (06:19)
[2018-04-05 07:30] VITALS: BP 99/52
[2018-04-05] MEDS: RIVASTIGMINE TARTRATE 1.5 MG CAPSULE PO SCH ×2 (08:32→20:07)
[2018-04-05] MEDS: ASPIRIN EC 81 MG TABLET.DR PO SCH (08:32)
[2018-04-05] MEDS: risperiDONE 0.5 MG TABLET PO SCH ×2 (08:32→20:07)
[2018-04-05] MEDS: DILTIAZEM HCL CD 120 MG CAP.SR.24H PO SCH (08:33)
[2018-04-05] MEDS: LOSARTAN POTASSIUM 50 MG TABLET PO SCH (08:34)
[2018-04-05 17:14] VITALS: BP 114/81
[2018-04-05] MEDS: RIVAROXABAN 15 MG TABLET PO SCH (18:53)
[2018-04-05] MEDS: ATORVASTATIN 40 MG TABLET PO SCH (20:07)
[2018-04-05] MEDS: DOCUSATE SODIUM 100 MG CAPSULE PO SCH (20:07)
[2018-04-05 20:13] VITALS: BP 114/51
[2018-04-06] MEDS: PANTOPRAZOLE SODIUM 40 MG TABLET.DR PO SCH (06:31)
[2018-04-06 07:30] VITALS: BP 135/59
[2018-04-06] MEDS: LOSARTAN POTASSIUM 50 MG TABLET PO SCH (08:32)
[2018-04-06] MEDS: RIVASTIGMINE TARTRATE 1.5 MG CAPSULE PO SCH (08:32)
[2018-04-06 08:33] VITALS: BP 135/59
[2018-04-06] MEDS: risperiDONE 0.5 MG TABLET PO SCH (08:33)
[2018-04-06] MEDS: DILTIAZEM HCL CD 120 MG CAP.SR.24H PO SCH (08:33)
[2018-04-06] MEDS: ASPIRIN EC 81 MG TABLET.DR PO SCH (08:33)
== END 2018-04-06 16:00 | DRG 885 ==
LOC: GPS 16:50
PROVIDERS: ADMIT Psychiatry & Neurology Psychiatry; ATTEND Internal Medicine
DX: F29 Unspecified psychosis not due to a substance or known physiological condition (principal); F01.50 Vascular dementia, unspecified severity, without behavioral disturbance, psychotic disturbance, mood disturbance, and anxiety; I11.0 Hypertensive heart disease with heart failure; I48.92 Unspecified atrial flutter; I50.42 Chronic combined systolic (congestive) and diastolic (congestive) heart failure; D68.59 Other primary thrombophilia; F03.90 Unspecified dementia, unspecified severity, without behavioral disturbance, psychotic disturbance, mood disturbance, and anxiety; E78.5 Hyperlipidemia, unspecified; I48.2 Chronic atrial fibrillation; Z87.440 Personal history of urinary (tract) infections; Z96.643 Presence of artificial hip joint, bilateral; Z95.0 Presence of cardiac pacemaker; Z86.73 Personal history of transient ischemic attack (TIA), and cerebral infarction without residual deficits; Z79.01 Long term (current) use of anticoagulants; E87.6 Hypokalemia; E53.8 Deficiency of other specified B group vitamins; Z74.09 Other reduced mobility; D75.89 Other specified diseases of blood and blood-forming organs; M50.30 Other cervical disc degeneration, unspecified cervical region
CPT/HCPCS: 36415; 83735; 84100; 85025; 97165